=== PATIENT | female | born 1980 | race Caucasian/White ===

== ENCOUNTER 2018-01-11 14:12 | Emergency (ER) | payer OTHER ==
[~2018-01-11] VITALS: Ht 170.2 cm; Wt 70.8 kg
[~2018-01-11 14:12] MED LIST: NOHOMEMEDS
[2018-01-11] MEDS ORDERED: ULTRAM50 MG PO (15:59)
[2018-01-11 16:31] VITALS: BP 146/89
== END 2018-01-11 16:35 | disposition home or self-care (01) ==
LOC: EME 14:12
DX: S67.192A Crushing injury of right middle finger, initial encounter (principal); S67.194A Crushing injury of right ring finger, initial encounter; S61.302A Unspecified open wound of right middle finger with damage to nail, initial encounter; S61.304A Unspecified open wound of right ring finger with damage to nail, initial encounter; W23.0XXA Caught, crushed, jammed, or pinched between moving objects, initial encounter; Y99.0 Civilian activity done for income or pay; Z23 Encounter for immunization; J45.909 Unspecified asthma, uncomplicated; Z87.891 Personal history of nicotine dependence
CPT/HCPCS: 73130; 99281; 99284; S0020